=== PATIENT | male | born 1965 | race Caucasian/White ===

== ENCOUNTER 2018-05-26 09:33 | Emergency (ER) | payer BC ==
[2018-05-26] MEDS: HYDROCODONE/APAP (5/325) TAB PO (10:02)
[2018-05-26] MEDS: LIDOCAINE 1% (MDV) 10 ML INJ INJ (10:11)
== END 2018-05-26 11:35 | disposition home or self-care (01) ==
LOC: FTE 09:33
DX: L72.3 Sebaceous cyst (principal)
CPT/HCPCS: 10061; 99283-25

== ENCOUNTER 2018-05-28 07:40 | Emergency (ER) | payer BC | END 2018-05-28 08:50 | disposition home or self-care (01) | LOC: FTE 07:40 | DX: Z48.01 Encounter for change or removal of surgical wound dressing (principal) | CPT/HCPCS: 99281 ==

== ENCOUNTER 2018-06-12 11:07 | Day surgery (SDC) | payer BC ==
[~2018-06-12 11:07] MED LIST: CEFAZOLIN 1 GM INJ; FENTAnyl 50 MCG/ML VIAL; MIDAZOLAM 1 MG/ML 2 ML INJ; PROPOFOL 200 MG INJ
[2018-06-12] MEDS ORDERED: LIDOCAINE 2% (MDV) 20 ML INJ (17:14)
[2018-06-12] MEDS ORDERED: BUPIVACAINE 0.5% (SDV) 30 ML INJ (17:14)
[2018-06-12] MEDS ORDERED: FENTAnyl 50 MCG/ML VIAL (17:43)
[2018-06-12] MEDS ORDERED: KETOROLAC 30 MG INJ (17:44)
[2018-06-12] MEDS ORDERED: METOCLOPRAMIDE 10 MG INJ (17:44)
[2018-06-12] MEDS ORDERED: DEXAMETHASONE 4 MG/ML 1 ML INJ (17:44)
[2018-06-12] MEDS ORDERED: ONDANSETRON 4 MG INJ (17:44)
[2018-06-12] MEDS: BUPIVACAINE 0.25% (MPF) 30 ML INJ (17:45)
[2018-06-12] MEDS ORDERED: ONDANSETRON 4 MG INJ IV (18:00)
[2018-06-12] MEDS ORDERED: OXYCODONE/ACETAMINOPHEN (5/325) TAB PO (18:00)
[2018-06-12] MEDS ORDERED: MEPERIDINE 25 MG INJ IV (18:00)
[2018-06-12] MEDS ORDERED: LABETALOL HCL 20MG INJ IV (18:00)
[2018-06-12] MEDS ORDERED: METOCLOPRAMIDE 10 MG INJ IV (18:00)
[2018-06-12] MEDS ORDERED: FENTAnyl 50 MCG/ML VIAL IV ×3 (18:00)
[2018-06-12] MEDS ORDERED: DIPHENHYDRAMINE 50 MG INJ IV (18:00)
[2018-06-12] MEDS ORDERED: HYDROCODONE/APAP (5/325) TAB PO (18:00)
[2018-06-12] MEDS ORDERED: HYDROmorphONE 1 MG/5 ML IV SYRINGE IV ×3 (18:00)
[2018-06-12] MEDS ORDERED: EPHEDrine SULFATE 50 MG/5 ML SYG IV (18:00)
== END 2018-06-12 20:20 | disposition home or self-care (01) ==
LOC: SDS 11:07
DX: L72.0 Epidermal cyst (principal)
CPT/HCPCS: 14001; 88307

== ENCOUNTER 2018-09-13 20:46 | Emergency (ER) | payer BC ==
[2018-09-13 21:32] LABS: ADD MAN DIFF? NO
[2018-09-13 21:34] LABS: WHITE BLOOD COUNT 8.2 10^3/ul (4.8-10.8)
[2018-09-13 21:34] LABS: BASOPHIL # 0.1 10^3/ul (0.0-0.1); BASOPHILS % 0.9 % (0.0-2.0); EOSINOPHILS # 0.2 10^3/ul (0.0-0.5); EOSINOPHILS % 2.1 % (0.0-7.0); HEMATOCRIT 43.1 % (42.0-52.0); HEMOGLOBIN 14.2 g/dl (14.0-18.0); LYMPHOCYTES # 2.5 10^3/ul (0.8-2.9); LYMPHOCYTES % 30.7 % (15.0-51.0); MEAN CORPUSCULAR HEMOGLOBIN 29.8 pg (29.0-33.0); MEAN CORPUSCULAR HGB CONC 32.9 g/dl (32.0-37.0); MEAN CORPUSCULAR VOLUME 90.5 fl (82.0-101.0); MEAN PLATELET VOLUME 9.6 fl (7.4-10.4); MONOCYTE # 0.7 10^3/ul (0.3-0.9); NEUTROPHIL # 4.7 10^3/ul (1.6-7.5); NEUTROPHILS % 57.1 % (39.0-77.0); PLATELET COUNT 188 10^3/UL (140-415); RED BLOOD COUNT 4.76 10^6/ul (4.70-6.10); RED CELL DISTRIBUTION WIDTH 13.4 % (11.5-14.5)
[2018-09-13] MEDS: morphine 4 MG/ML VIAL IV (21:34)
[2018-09-13] MEDS: SOD CHLORIDE 0.9% 1,000 ML IV (21:34)
[2018-09-13 21:54] LABS: ALANINE AMINOTRANSFERASE 28 IU/L (13-69); ALBUMIN 4.3 g/dl (3.3-4.9); ALBUMIN/GLOBULIN RATIO 1.53; ALKALINE PHOSPHATASE 90 IU/L (42-121); ANION GAP 12 (5-13); ASPARTATE AMINO TRANSFERASE 29 IU/L (15-46); BILIRUBIN,INDIRECT 0.3 mg/dl (0-1.1); BILIRUBIN,TOTAL 0.3 mg/dl (0.2-1.3); BLOOD UREA NITROGEN 17 mg/dl (7-20); CALCIUM 9.1 mg/dl (8.4-10.2); CARBON DIOXIDE 25 mmol/L (21-31); CHLORIDE 105 mmol/L (97-110); CREATININE 0.75 mg/dl (0.61-1.24); Estimated GFR > 60 mL/min (>60); GLUCOSE 114 mg/dl (70-220); LIPASE 54 U/L (23-300); POTASSIUM 4.1 mmol/L (3.5-5.1); SODIUM 142 mmol/L (135-144); TOTAL PROTEIN 7.1 g/dl (6.1-8.1)
[2018-09-13] MEDS: KETOROLAC 15 MG INJ IV (21:56)
[2018-09-13] MEDS: ONDANSETRON 4 MG INJ IV (21:56)
[2018-09-13 22:05] LABS: TROPONIN-I < 0.012 ng/ml (0.000-0.120)
== END 2018-09-13 23:12 | disposition home or self-care (01) ==
LOC: E/R 20:46
DX: K80.50 Calculus of bile duct without cholangitis or cholecystitis without obstruction (principal)
CPT/HCPCS: 36415; 71045; 76705; 80053; 83690; 84484; 85025; 93005; 96374; 96375; 99285-25